=== PATIENT | female | born 1995 | race Caucasian/White ===

== ENCOUNTER 2017-05-22 16:57 | Emergency (ER) | payer OTHER ==
[~2017-05-22] VITALS: Ht 165.1 cm; Wt 55.0 kg
[2017-05-22 17:08] VITALS: TEMP 36.6; Ht 165.1 cm; Wt 55.0 kg
--- NOTE | 2017-05-22 17:29 | EMERGENCY ROOM VISIT NOTE ---
History Report prepared by Sussyibluis: Hector Solares Under the Supervision of: Dr. Burton Woodruff M.D. First contact with patient: 17:04 Stated Complaint: ALCOHOL History of Present Illness The patient is a 22 year old female who presents to the Emergency Room for evaluation of constant alcohol intoxication beginning shortly prior to arrival. She admits to drinking today. She denies any other drug use. The patient denies any injury. She denies any chance of . Per nursing staff, EMS was called for the patient after she knocked over a jug of water at a [facility] dormitory. HPI limited secondary to alcohol intoxication. Source of History: patient History Limited By: intoxication Onset: Shortly prior to arrival Quality: other (alcohol intoxication) Timing: constant Review of Systems ROS limited secondary to alcohol intoxication. Past Medical & Surgical Medical Problems: (1) No Known Active Medical Problems Old medical records were reviewed. Nurse's notes were reviewed and I agree with. Family History Unobtainable secondary to alcohol intoxication. Social History Occupation Status: [employer] student Current/Historical Medications No Active Prescriptions or Reported Meds Allergies Coded Allergies: No Known Allergies (Unverified , 05/22/17) Physical Exam Vital Signs Date Time Temp Pulse Resp B/P (MAP) Pulse Ox O2 Delivery O2 Flow Rate FiO2 05/22/17 22:03 71 18 114/71 99 Room Air 05/22/17 20:31 94 18 109/63 98 Room Air 05/22/17 19:32 76 14 103/50 99 Room Air 05/22/17 19:02 72 13 89/51 100 Room Air 05/22/17 18:31 71 14 109/59 100 Room Air 05/22/17 18:01 59 14 94/46 97 Room Air 05/22/17 17:48 60 16 95/56 96 Room Air 05/22/17 17:15 90 05/22/17 17:08 36.6 68 20 99/51 97 Room Air Physical Exam General: Moderately intoxicated young female. Talking to sister on phone. Slurring speech. Smells of alcohol. HEENT: Normal cephalic atraumatic. Pupils are equal round and reactive to light. Extraocular movements are intact. Oropharynx is pink with moist mucous membranes. No swelling of the mouth lips or tongue. Neck: Supple with a midline trachea. No meningeal signs or stiffness, no JVD or bruits. No Stridor. Chest: Clear to auscultation bilaterally. No wheezes or rhonchi. No increased work of breathing. Heart: regular rate and rhythm. Abdomen: Soft nontender, nondistended without rebound guarding or rigidity. Extremities: No cyanosis clubbing or edema. No calf tenderness or assymetry Spine/Back. Non tender to palpation. No CVA tenderness Skin: Good turgor without rashes. Neurologic exam: Alert to person place, but not date. Answers questions appropriately. Medical Decision & Procedures Laboratory Results Test 05/22/17 17:20 Ethyl Alcohol mg/dL 376.0 mg/dl (0-3) Laboratory studies as stated above per my review. ED Course 1705: Past medical records reviewed. The patient was evaluated in room B12B, and a complete history and physical examination were performed. 1756: I checked in on the patient. She is sleeping comfortably. 1909: I reassessed the patient. She is resting comfortably. 2002: The patient is awake and speaking. 2031: I reassessed the patient. She has sobered up significantly and is looking for a ride home. 2149: Upon reevaluation, the patient is resting comfortably. I discussed the results and treatment plan with her. She verbalized agreement of the treatment plan. The patient was discharged home. Medical Decision Differentials include, but are not limited to; alcohol intoxication, hypoglycemia, overdose, trauma, and electrolyte or metabolic abnormality. This patient comes in as described above. She was [place] intoxicated [place]-campus. She is awake and is most questions verbally and does appear to be moderately intoxicated. There is no evidence of suggest trauma or coingestion. She was placed on a cardiac technologist and blood alcohol was obtained. She was reassessed frequently. Blood alcohol was elevated at 376. She was observed in the ER and sobered up over about 5 hours in the ER if she is awake and is able ambulate and drink without difficulty. She keeps asking to go home. She denies any complaints or coingestions she had several sober friend show up and get her here. They feel comfortable taking her home and I think this is reasonable at this point. She should not drinking more alcohol return if any new problems or concerns. Impression Primary Impression: Alcohol intoxication Scribe Attestation The scribe's documentation has been prepared under my direction and personally reviewed by me in its entirety. I confirm that the note above accurately reflects all work, treatment, procedures, and medical decision making performed by me. Departure Information Dispostion Home / Self-Care Prescriptions No Active Prescriptions or Reported Meds Forms HOME CARE DOCUMENTATION FORM, IMPORTANT VISIT INFORMATION Patient Instructions Alcohol Intoxication - [facility], [facility] Additional Instructions Rest. Do not drink any more alcohol Drink plenty of nonalcoholic liquids Return if any new problems or concerns or complaints
[2017-05-22 22:03] VITALS: BP 114/71; PULSE 71; O2SAT 99
== END 2017-05-22 22:02 | disposition home or self-care (01) ==
LOC: C.EDB 17:00
DX: F10.129 Alcohol abuse with intoxication, unspecified (principal); Y90.8 Blood alcohol level of 240 mg/100 ml or more